=== PATIENT | female | born 1960 | race Native Hawaiian/Other Pacific Islander ===

== ENCOUNTER 2022-03-27 00:42 | Day surgery (SDC) | payer OTHER, SELFPAY ==
[2022-03-06 13:40] VITALS: BMI 30.6
[2022-03-27 07:22] VITALS: BP 123/75; PULSE 71; RESP 18; TEMP 36.2; O2SAT 96; BMI 31.1
[2022-03-27] MEDS: LACTATED RINGERS 1,000 ML 150 ML IV CONT (07:30)
--- NOTE | 2022-03-27 07:39 | WPDANESEPPF ---
Anes - Initial Pre Proc Eval Procedure: Operation Date: 03/27/22 08:30 Proposed Procedures p Screening Colonoscopy - Ross Ferguson MD Date/Time: 03/27/22 07:39 Surgeon: Ross Ferguson MD Pre Op Diagnosis: neoplasm screening Patient Data Age: 61 Gender: F Height: 1.63 m Weight: 82.3 kg Last Vital Signs Temp 36.2 C L 03/27/22 07:22 Pulse 71 03/27/22 07:22 Resp 18 03/27/22 07:22 BP 123/75 03/27/22 07:22 Pulse Ox 96 03/27/22 07:22 O2 Del Method Room Air 03/27/22 07:22 Allergies Allergy/AdvReac Type Severity Reaction Status Date / Time No Known Allergies Allergy Verified 03/27/22 07:21 Home Medications Medication Instructions Recorded Confirmed Type [id number]-[id number] 1 tablet PO DAILY #1 tablet 09/10/19 03/06/22 Rx tablet (Multivitamin 50 Plus tablet) ibandronate 150 mg tablet 150 mg PO MONTHLY 90 days #3 tabs 05/11/21 03/06/22 Rx albuterol sulfate 90 mcg/actuation 1 - 4 puff inhalation QID PRN 08/23/21 03/06/22 Rx aerosol inhaler (ProAir HFA) shortness of breath or wheezing 30 days #18 grams fluticasone 500 mcg-salmeterol 50 See Rx Instructions .Route 10/17/21 03/06/22 Rx mcg/dose blistr powdr for .COMPLEX #180 blisters inhalation (Advair Diskus) montelukast 10 mg tablet See Rx Instructions .Route 10/17/21 03/06/22 Rx .COMPLEX #90 tabs venlafaxine 75 mg tablet See Rx Instructions .Route 10/17/21 03/06/22 Rx .COMPLEX #180 tabs cetirizine 10 mg capsule 10 mg PO QPM 90 days #90 caps 01/20/22 03/06/22 Rx cholecalciferol (vitamin D3) 125 5,000 unit PO DAILY 90 days #90 01/20/22 03/06/22 Rx mcg (5,000 unit) tablet (Vitamin tabs D3) fluticasone propionate 50 1 spray intranasal DAILY 30 days 01/20/22 03/06/22 Rx mcg/actuation nasal #15.8 mL spray,suspension (Allergy Relief (fluticasone)) olmesartan 20 1 tablet PO DAILY 90 days #90 tabs 01/20/22 03/06/22 Rx mg-hydrochlorothiazide 12.5 mg tablet (Benicar HCT) albuterol sulfate 0.63 mg/3 mL 0.63 mg inhalation .4 times a day 03/06/22 03/06/22 History solution for nebulization PRN Shortness Of Breath sodium sul 1.479 gram-potas ch See Rx Instructions PO .COMPLEX 03/07/22 Rx 0.188 gram-magnes sul 0.225 gram #24 tabs tablet (Sutab) Patient hx anesthesia problems: none Family hx anesthesia problems: none Results Review: All pre-operative results and documents have been reviewed as part of the pre-operative evaluation. [facility] Past Medical History Medical History Essential (primary) hypertension Generalized anxiety disorder Mild intermittent asthma without complication Pure hypercholesterolemia, unspecified Vitamin D deficiency, unspecified Family History Family History Father Family history of primary malignant neoplasm of liver, Onset Age: 69 Patient's father is Mother Family history of malignant neoplasm of breast in first degree relative, Onset Age: 52 Patient's mother is Other Asthma Cerebrovascular accident Diabetes mellitus Family history of arthritis Family history of cardiovascular disease Family history of malignant neoplasm Family history of malignant neoplasm of breast Hypertension Social History Social History Smoking status: Never smoker Alcohol intake: never Substance use: never Substance use type: does not use Living arrangements: with family Gender identity (if verbalized by the patient): Female Spiritual care concerns: No Anes - Eval Final PreProcedure Day of Procedure 03/27/22 07:39 Patient weight: obese Heart: regular rate and rhythm Lungs: clear to auscultation and normal air movement Airway: Mallampati scale class II Neurological: alert and oriented Last oral intake: >/= 8 hours
--- NOTE | 2022-03-27 08:27 | PM.HPGS ---
History of Present Illness History of Present Illness Consent: Risks, benefits, and alternatives have been discussed and questions answered. Patient agrees to proceed with procedure. Chief complaint: neoplasm screening Narrative: Riana Blackman is a 61 year old female referred for colon cancer screening. Her last colonoscopy was 11 years ago. Review of Systems Review of Systems: All systems reviewed & are unremarkable except as noted in HPI and below PMFSH Past Medical History Medical History Essential (primary) hypertension Generalized anxiety disorder Mild intermittent asthma without complication Pure hypercholesterolemia, unspecified Vitamin D deficiency, unspecified Family History Family History Father Family history of primary malignant neoplasm of liver, Onset Age: 69 Patient's father is Mother Family history of malignant neoplasm of breast in first degree relative, Onset Age: 52 Patient's mother is Other Asthma Cerebrovascular accident Diabetes mellitus Family history of arthritis Family history of cardiovascular disease Family history of malignant neoplasm Family history of malignant neoplasm of breast Hypertension Social History Social History Smoking status: Never smoker Alcohol intake: never Substance use: never Substance use type: does not use Living arrangements: with family Gender identity (if verbalized by the patient): Female Spiritual care concerns: No Meds Home Medications and Allergies Home Medications Medication Instructions Recorded Confirmed Type [id number]-[id number] 1 tablet PO DAILY #1 tablet 09/10/19 03/06/22 Rx tablet (Multivitamin 50 Plus tablet) ibandronate 150 mg tablet 150 mg PO MONTHLY 90 days #3 tabs 05/11/21 03/06/22 Rx albuterol sulfate 90 mcg/actuation 1 - 4 puff inhalation QID PRN 08/23/21 03/06/22 Rx aerosol inhaler (ProAir HFA) shortness of breath or wheezing 30 days #18 grams fluticasone 500 mcg-salmeterol 50 See Rx Instructions .Route 10/17/21 03/06/22 Rx mcg/dose blistr powdr for .COMPLEX #180 blisters inhalation (Advair Diskus) montelukast 10 mg tablet See Rx Instructions .Route 10/17/21 03/06/22 Rx .COMPLEX #90 tabs venlafaxine 75 mg tablet See Rx Instructions .Route 10/17/21 03/06/22 Rx .COMPLEX #180 tabs cetirizine 10 mg capsule 10 mg PO QPM 90 days #90 caps 01/20/22 03/06/22 Rx cholecalciferol (vitamin D3) 125 5,000 unit PO DAILY 90 days #90 01/20/22 03/06/22 Rx mcg (5,000 unit) tablet (Vitamin tabs D3) fluticasone propionate 50 1 spray intranasal DAILY 30 days 01/20/22 03/06/22 Rx mcg/actuation nasal #15.8 mL spray,suspension (Allergy Relief (fluticasone)) olmesartan 20 1 tablet PO DAILY 90 days #90 tabs 01/20/22 03/06/22 Rx mg-hydrochlorothiazide 12.5 mg tablet (Benicar HCT) albuterol sulfate 0.63 mg/3 mL 0.63 mg inhalation .4 times a day 03/06/22 03/06/22 History solution for nebulization PRN Shortness Of Breath sodium sul 1.479 gram-potas ch See Rx Instructions PO .COMPLEX 03/07/22 Rx 0.188 gram-magnes sul 0.225 gram #24 tabs tablet (Sutab) Allergies Allergy/AdvReac Type Severity Reaction Status Date / Time No Known Allergies Allergy Verified 03/27/22 07:21 Vital Signs Vital Signs - 24 hr 03/27/22 07:22 Temperature 36.2 C L Pulse Rate 71 Respiratory Rate 18 Blood Pressure 123/75 Pulse Oximetry 96 Oxygen Delivery Room Air Exam Const: General: alert Orientation/consciousness: patient oriented x3 Resp: Auscultation: clear to auscultation bilaterally Cardio: Rhythm: regular rhythm GI: GI Palp: Yes Soft to palpation and No Tenderness to palpation present (GI) Neuro: General: patient oriented x3 Assessment and Plan Assessme
[2022-03-27 08:50] VITALS: BP 101/70; PULSE 71; RESP 18; O2SAT 95
[2022-03-27 09:00] VITALS: BP 108/74; PULSE 64; RESP 19; O2SAT 99
[2022-03-27 09:10] VITALS: BP 141/96; PULSE 68; RESP 21; O2SAT 99
== END 2022-03-27 09:18 | disposition home or self-care (01) ==
PROVIDERS: PCP Family Medicine; Visit Provider Internal Medicine Gastroenterology
PROC: 0DJD8ZZ Inspection of Lower Intestinal Tract, Via Natural or Artificial Opening Endoscopic (ICD-10-PCS; CPT 45378; principal; 2022-03-27 08:30)
DX: Z12.11 Encounter for screening for malignant neoplasm of colon (principal); D12.2 Benign neoplasm of ascending colon; K57.30 Diverticulosis of large intestine without perforation or abscess without bleeding; I10 Essential (primary) hypertension; F41.1 Generalized anxiety disorder; E55.9 Vitamin D deficiency, unspecified; E78.00 Pure hypercholesterolemia, unspecified; J45.20 Mild intermittent asthma, uncomplicated; Z79.51 Long term (current) use of inhaled steroids; E66.9 Obesity, unspecified; Z68.31 Body mass index [BMI] 31.0-31.9, adult
CPT/HCPCS: 45385; 88305; J2704; J7120

== ENCOUNTER 2023-05-04 09:14 | Outpatient (CLI) | payer OTHER, SELFPAY ==
[2023-05-04 09:37] LABS: Basophils Absolute Auto 0.1 K/mm3 (0.0-0.1); Basophils Percent Auto 0.8 % (0.2-1.2); Hematocrit 41.2 % (37.0-47.0); Hemoglobin 13.3 g/dL (12.0-15.0); Immature Granulocyte Absolute 0.07 K/mm3 (0.00-0.031); Lymphocytes Absolute Auto 1.55 K/mm3 (0.9-3.2); Lymphocytes Percent Auto 21.3 % (18.3-44.2); Mean Corpuscular HGB Conc 32.3 g/dl (32-36); Mean Platelet Volume 7.7 fl (7.4-10.4); Monocytes Absolute Auto 0.5 K/mm3 (0.1-0.6); Monocytes Percent Auto 6.6 % (2.6-8.5); Neutrophils Absolute Auto 4.1 K/mm3 (1.3-6.7); Neutrophils Percent Auto 56.3 % (45.5-73.1); Platelet Count Result 358 k/mm3 (150-375); Red Blood Count 4.58 M/mm3 (4.2-5.4); Red Cell Distribution Width 12.8 % (11.5-14.5); White Blood Count 7.3 K/mm3 (4.5-10.0)
[2023-05-04 09:43] LABS: Alanine Aminotransferase 40 U/L (6-35); Albumin Level 4.7 g/dL (3.5-5.1); Alkaline Phosphatase 75 U/L (38-126); Anion Gap 7 mmol/L (8-16); Aspartate Amino Transferase 30 U/L (14-36); Bilirubin,Total 0.4 mg/dL (0.2-1.3); Blood Urea Nitrogen 11 mg/dL (7-17); Calcium 9.6 mg/dL (8.4-10.2); Carbon Dioxide 34 mmol/L (22-30); Chloride 100 mmol/L (98-107); Cholesterol 229 mg/dL (0-200); Estimated Glomerular Filt Rate > 60; Glucose 109 mg/dL (65-110); HDL Direct 47 mg/dL; Potassium 3.8 mmol/L (3.4-5.0); Sodium 141 mmol/L (137-145); Triglycerides 149 mg/dL (<150)
[2023-05-04 09:55] LABS: LDL Cholesterol Direct 104 mg/dL
[2023-05-04 10:14] LABS: Thyroid Stimulating Hormone 0.715 uIU/mL (0.465-4.680)
== END 2023-05-04 09:15 | disposition home or self-care (01) ==
PROVIDERS: PCP Family Medicine; Visit Provider Family Medicine
DX: I10 Essential (primary) hypertension (principal); R73.9 Hyperglycemia, unspecified; E78.00 Pure hypercholesterolemia, unspecified; Z13.29 Encounter for screening for other suspected endocrine disorder
CPT/HCPCS: 36415; 80053; 80061; 83036; 84443; 85025

== ENCOUNTER → 2023-07-18 09:09 | Outpatient (CLI) | payer OTHER, SELFPAY ==
--- NOTE | ~2023-07-18 | MMUS_ITS ---
EXAMINATION: MM diagnostic dimple LT w berry, US breast LT limited HISTORY: Left breast mass on screening mammogram TECHNIQUE: Additional 3-D tomosynthesis images of the left breast were performed and synthetic 2-D im ages were generated. CAD analysis was submitted and interpreted. High resolution limited left breast ultrasound was performed. COMPARISON: 06/08/2023, 01/13/2022, 10/21/2020 BREAST PARENCHYMAL COMPOSITION: The breasts are heterogeneously dense, which may obscure small masses . FINDINGS: MAMMOGRAPHIC FINDINGS: There is a return to baseline fibroglandular appearance with spot compression of the left breast in t he area questioned on screening mammogram. No left breast mass is identified. ULTRASOUND: There is no evidence of focal abnormal solid or cystic mass in the vicinity of the mammographic findi ng in question. IMPRESSION: 1. No mammographic or sonographic evidence of malignancy. 2. Recommend routine screening mammography in one year. BI-RADS Category 1: Negative Reviewed, dictated and finalized at location A. IMPRESSION: 1. No mammographic or sonographic evidence of malignancy. 2. Recommend routine screening mammography in one year. BI-RADS Category 1: Negative
== END ==
PROVIDERS: PCP Family Medicine; Visit Provider Obstetrics & Gynecology Gynecology
DX: R92.8 Other abnormal and inconclusive findings on diagnostic imaging of breast (principal)
CPT/HCPCS: 76642; 77061; 77065; G0279

== ENCOUNTER 2024-07-24 10:36 | Outpatient (CLI) | payer OTHER, SELFPAY ==
--- NOTE | ~2024-07-24 | MM_ITS ---
EXAMINATION: MM screening dimple BI w berry HISTORY: Screening TECHNIQUE: Craniocaudal and mediolateral oblique 3-D tomosynthesis images were obtained and synthetic 2-D images were generated. CAD analysis was submitted and interpreted. COMPARISON: Comparison to multiple prior studies sequentially, with oldest reviewed study dated 11/12. BREAST PARENCHYMAL COMPOSITION: Dense: The breasts are heterogeneously dense, which may obscure small masses FINDINGS: There is no evidence of suspicious mass, calcification, or architectural distortion to sugg est malignancy in either breast. There has been no suspicious interval change. IMPRESSION: 1. No mammographic evidence of malignancy. 2. Recommend routine screening mammography in one year. BI-RADS Category 1: Negative Reviewed, dictated and finalized at location B.
== END 2024-07-24 10:37 | disposition home or self-care (01) ==
PROVIDERS: PCP Family Medicine; Visit Provider Obstetrics & Gynecology Gynecology
DX: Z12.31 Encounter for screening mammogram for malignant neoplasm of breast (principal)
CPT/HCPCS: 77063; 77067

== ENCOUNTER 2025-08-06 11:21 | Outpatient (CLI) | payer OTHER, SELFPAY ==
--- NOTE | ~2025-08-06 | MM_ITS ---
EXAMINATION: MM screening [facility] BI w berry HISTORY: Screening TECHNIQUE: Craniocaudal and mediolateral oblique 3-D tomosynthesis images were obtained and synthetic 2-D images were generated. CAD analysis was submitted and interpreted. COMPARISON: Comparison to multiple prior studies sequentially, with oldest reviewed study dated 11/12/2018. BREAST PARENCHYMAL COMPOSITION: Dense: The breasts are heterogeneously dense, which may obscure small masses FINDINGS: There is no evidence of suspicious mass, calcification, or architectural distortion to suggest malignancy in either breast. There has been no suspicious interval change. IMPRESSION: 1. No mammographic evidence of malignancy. 2. Recommend routine screening mammography in one year. BI-RADS Category 1: Negative Reviewed, dictated and finalized at location O.
== END 2025-08-06 11:22 | disposition home or self-care (01) ==
LOC: MICIMG 11:22
PROVIDERS: PCP Family Medicine; Visit Provider Obstetrics & Gynecology Gynecology
DX: Z12.31 Encounter for screening mammogram for malignant neoplasm of breast (principal)
CPT/HCPCS: 77063; 77067